=== PATIENT | male | born 1945 | race African-American/Black ===

== ENCOUNTER 2019-08-04 14:20 | Emergency (ER) | payer OTHER ==
[~2019-08-04] VITALS: Ht 170.2 cm; Wt 65.0 kg
[2019-08-04 19:35] VITALS: BP 132/79
== END 2019-08-04 19:36 | disposition home or self-care (01) ==
LOC: ER 14:20
DX: I10 Essential (primary) hypertension (principal); E11.9 Type 2 diabetes mellitus without complications
CPT/HCPCS: 99283